=== PATIENT | male | born 1975 | race Caucasian/White ===

== ENCOUNTER 2019-06-05 08:48 | Emergency (ER) | payer OTHER ==
[~2019-06-05] VITALS: Ht 177.8 cm; Wt 90.9 kg
[2019-06-05 09:25] LABS: BASO # 0.1 10^3/uL (0.0-0.2); BASO % 0.4 % (0.0-1.0); EOS % 0.1 % (0.0-3.0); HEMATOCRIT 55.3 % (42.0-52.0); HEMOGLOBIN 18.5 g/dl (13.5-17.5); LYMPH # 0.4 10^3/uL (1.5-5.0); LYMPH % 2.3 % (24.0-44.0); MEAN CORPUSCULAR HEMOGLOBIN 29.6 pg (27.0-33.0); MEAN CORPUSCULAR HGB CONC 33.5 g/dl (32.0-36.5); MEAN CORPUSCULAR VOLUME 88.6 fl (80.0-96.0); MONO # 0.9 10^3/uL (0.0-0.8); MONO % 5.3 % (0.0-5.0); NEUTROPHILS % 91.4 % (36.0-66.0); PLATELET COUNT, AUTOMATED 242 10^3/uL (150-450); RED BLOOD COUNT 6.24 10^6/uL (4.30-6.10); WHITE BLOOD COUNT 16.4 10^3/uL (4.0-10.0)
[2019-06-05] MEDS ORDERED: ISOVUE-370 76% 100ML VIAL (Q9967) As Ordered ONE (09:30)
[2019-06-05] MEDS ORDERED: METOCLOPRAMIDE INJ 10MG/2ML VIAL (J2765) IV ONE (09:30)
[2019-06-05] MEDS ORDERED: NS 1,000 ML IV ONE ×2 (09:30→10:00)
[2019-06-05 09:55] LABS: ALBUMIN 4.9 GM/DL (3.2-5.2); BILIRUBIN,DIRECT 0.2 MG/DL (0.0-0.2); BILIRUBIN,TOTAL 0.8 MG/DL (0.2-1.0); TOTAL PROTEIN 8.4 GM/DL (6.4-8.2)
[2019-06-05] MEDS ORDERED: PANTOPRAZOLE 40MG INJ (PROTONIX) (C9113) IV ONE (10:00)
--- NOTE | 2019-06-05 10:04 | REP ---
CT of the abdomen and pelvis with IV contrast, without bowel contrast for abdominal pain: There are no comparisons. The patient reportedly has clinical history of renal calculi. The visualized lung young are unremarkable. The hepatic parenchyma, gallbladder, pancreas, and spleen are normal size, homogeneous and unremarkable. The adrenals are unremarkable. There are no renal calculi. There is no hydronephrosis. There are no solid or cystic renal masses. There is no perinephric stranding. The renal cortices enhance normally bilaterally. The abdominal aorta and periaortic area are unremarkable. There is no bowel distension. There is wall thickening of the transverse colon, descending colon and sigmoid colon, nonspecific, but compatible with colitis in the appropriate clinical setting. The mesentery is unremarkable. There is no ascites. Pelvis: The appendix and terminal ileum are unremarkable. There is no ascites or adenopathy. The bladder is nondistended and cannot be further assessed. Impression: Wall thickening of the transverse, descending and sigmoid colon, nonspecific, but compatible with colitis in the appropriate clinical setting. Otherwise, negative CT of the abdomen and pelvis. Electronically Signed by Ernesto Garcia MD 06/05/2019 09:55 A
[2019-06-05] MEDS ORDERED: SUCRALFATE SUSP 1GM/10ML UD PO ONE (10:45)
[2019-06-05] MEDS ORDERED: KETOROLAC 30 MG/ML VIAL (J1885) IV ONE (11:00)
[2019-06-05 13:16] VITALS: BP 110/58
== END 2019-06-05 13:19 | disposition home or self-care (01) ==
LOC: M ED 08:48
DX: R11.2 Nausea with vomiting, unspecified (principal); R19.7 Diarrhea, unspecified; R10.9 Unspecified abdominal pain
CPT/HCPCS: 36415; 74177; 80047; 80076; 83690; 85025; 96361; 96374; 96375; 99284; C9113; J1885; J2765; Q9967